=== PATIENT | male | born 1965 | race Caucasian/White ===

== ENCOUNTER 2020-12-26 09:33 | Outpatient (CLI) | payer OTHER, SELFPAY ==
--- NOTE | ~2020-12-26 | CT_ITS ---
EXAMINATION:CT lung screening DATE: 12/26/2020 09:53 INDICATION: Nicotine dependence, cigarettes, uncomplicated. Current smoker with 40 pack year history. TECHNIQUE: Computed tomography (CT) of the chest was performed without intravenous contrast. Automate d exposure control and iterative reconstruction technique were employed. The dose-length product (DLP ) was 102.13 mGy-cm. COMPARISON: CT abdomen 08/18/2019 FINDINGS: There is mild emphysema. There is mild atelectasis bilaterally. There is a 2 mm nodule in r ight upper lobe. There is a 2 mm nodule at right major fissure. There is a 2 mm nodule in left upper lobe. There is a 4 mm groundglass opacity in left upper lobe. No pleural effusion. The heart size is normal. There are coronary artery calcifications. No pericardial effusion. There is a 5 mm cyst in th e liver. There is a 10 mm mass in left adrenal gland measuring low-attenuation, consistent with an ad enoma. There is mild lumbar spondylosis. There is mild chronic anterior wedging of multiple lower tho racic vertebral bodies. IMPRESSION: 1. Lung-RADS category 2: Benign appearance or behavior. Continue annual screening with noncontrast lo w-dose chest CT in 12 months. Reviewed, dictated and finalized at location B. IMPRESSION: 1. Lung-RADS category 2: Benign appearance or behavior. Continue annual screeni ng with noncontrast low-dose chest CT in 12 months.
== END 2020-12-26 09:34 | disposition home or self-care (01) ==
PROVIDERS: PCP Family Medicine; Visit Provider Family Medicine
DX: Z12.2 Encounter for screening for malignant neoplasm of respiratory organs (principal); Z87.891 Personal history of nicotine dependence
CPT/HCPCS: 71271

== ENCOUNTER 2021-12-29 14:19 | Outpatient (CLI) | payer BC, SELFPAY ==
--- NOTE | ~2021-12-29 | CT_ITS ---
EXAMINATION: CT lung screening DATE: 12/29/2021 14:33 INDICATION: Personal history of tobacco dependence TECHNIQUE: Computed tomography (CT) of the chest was performed without intravenous contrast. The dose -length product was 105.15 mGy-cm. Automated exposure control and iterative reconstruction technique were employed. COMPARISON: CT dated 12/26/2020 FINDINGS: There are borderline size mediastinal lymph nodes, likely reactive. Heart size normal. No s ignificant pleural or pericardial effusion. There is a small stable low-density lesion of the left ad renal gland measuring 1.5 x 1.1 cm, likely benign adenoma. Mild emphysema. No endobronchial lesions. Stable scattered bilateral pulmonary nodules measuring 3 mm or less. No endobronchial lesions. No pne umothorax. No acute osseous abnormality. There are surgical changes of the lower cervical spine. No f ocal lytic or blastic lesions. IMPRESSION: 1. Lung-RADS category 2: Benign appearance or behavior. Continue annual screening with noncontrast lo w-dose chest CT in 12 months. Reviewed, dictated and finalized at location A. IMPRESSION: 1. Lung-RADS category 2: Benign appearance or behavior. Continue annual screeni ng with noncontrast low-dose chest CT in 12 months.
== END 2021-12-29 14:20 | disposition home or self-care (01) ==
PROVIDERS: PCP Family Medicine; Visit Provider Family Medicine
DX: Z12.2 Encounter for screening for malignant neoplasm of respiratory organs (principal); Z87.891 Personal history of nicotine dependence
CPT/HCPCS: 71271

== ENCOUNTER 2022-08-20 13:53 | Outpatient (CLI) | payer BC, SELFPAY ==
--- NOTE | ~2022-08-20 | XR_ITS ---
XR abdomen/kub 1V 08/20/2022 14:28 INDICATION: Finalized abdominal pain TECHNIQUE: KUB COMPARISON: CT dated 08/18/2019 FINDINGS: Bowel gas pattern is normal. There is no evidence of free air, mass, organomegaly, ascites or obstruction. No abnormal calculi are seen. The bones appear intact. IMPRESSION: 1: No acute abdominal abnormality identified. Reviewed, dictated and finalized at location A. [employer]
[2022-08-20 15:33] LABS: Add Urine Microscopic? NO; Appearance Urine Clear (Clear); Bilirubin Urine Negative (Negative); Blood Urine Negative (Negative); Color Urine Yellow (Yellow); Glucose Urine UA Negative (Negative); Ketones Urine Negative (Negative); Leukocyte Esterase Ur Negative LEU/UL (Negative); Nitrate Urine Negative (Negative); Protein Urine Negative (Negative); Urobilinogen Urine 0.2 mg/dL (<2.0)
== END 2022-08-20 13:54 | disposition home or self-care (01) ==
PROVIDERS: PCP Family Medicine; Visit Provider Physician Assistant
DX: M54.9 Dorsalgia, unspecified (principal); N41.9 Inflammatory disease of prostate, unspecified; N39.0 Urinary tract infection, site not specified; R39.198 Other difficulties with micturition
CPT/HCPCS: 74018; 81003; 87491; 87591

== ENCOUNTER → 2023-02-05 10:43 | Outpatient (CLI) | payer BC, SELFPAY ==
--- NOTE | ~2023-02-05 | CT_ITS ---
EXAMINATION: CT lung screening DATE: 02/05/2023 10:58 INDICATION: Personal history of nicotine dependence TECHNIQUE: Computed tomography (CT) of the chest was performed without intravenous contrast. The dose -length product was 103.37 mGy-cm. Automated exposure control and iterative reconstruction technique were employed. COMPARISON: CT dated 12/29/2021 FINDINGS: There is mild right paratracheal lymphadenopathy, likely reactive. Heart size normal. No si gnificant pleural or pericardial effusion. Stable low-density 1.5 cm left adrenal nodule, likely idalmis gn adenoma. There are calcified granulomas of the spleen. There is emphysema. No endobronchial lesion s. No pneumothorax. There is right middle lobe atelectasis. There are a few small pulmonary nodules m easuring 2 mm or less which are stable. Mild-moderate lower thoracic spondylosis. IMPRESSION: 1. Lung-RADS category 2: Benign appearance or behavior. Continue annual screening with noncontrast lo w-dose chest CT in 12 months. Reviewed, dictated and finalized at location [] IMPRESSION: 1. Lung-RADS category 2: Benign appearance or behavior. Continue annual screeni ng with noncontrast low-dose chest CT in 12 months.
== END ==
PROVIDERS: PCP Family Medicine; Visit Provider Family Medicine
DX: Z12.2 Encounter for screening for malignant neoplasm of respiratory organs (principal); Z87.891 Personal history of nicotine dependence
CPT/HCPCS: 71271

== ENCOUNTER 2024-02-08 16:10 | Outpatient (CLI) | payer BC, SELFPAY ==
--- NOTE | ~2024-02-08 | CT_ITS ---
CT Scan of the Chest without Contrast: Clinical Indication: Lung cancer screening, nicotine dependence Technique: Contiguous sections were acquired throughout the chest without intravenous contrast. Dose reduction technique was used on this scan by utilizing automated exposure control and iterative recon struction technique. The dose-length product (DLP) was 111.72 mGy-cm. COMPARISON: 02/05/2023 Findings: There is no evidence of any significant mediastinal, hilar or axillary lymphadenopathy. The mediastin al soft tissues appear normal. There is no evidence of pleural or pericardial effusion. There is linear bibasilar scarring or atelectasis. No pulmonary nodule evident. Images through the upper abdomen reveal no abnormalities. Impression: Lung RADS 2: Benign appearance. 12 month follow-up screening CT advised. Reviewed, dictated and finalized at [facility]. Impression: Lung RADS 2: Benign appearance. 12 month follow-up screening CT advised.
== END 2024-02-08 16:11 | disposition home or self-care (01) ==
LOC: ANHIMG 16:13
PROVIDERS: PCP Family Medicine; Visit Provider Family Medicine
DX: Z12.2 Encounter for screening for malignant neoplasm of respiratory organs (principal); Z87.891 Personal history of nicotine dependence
CPT/HCPCS: 71271

== ENCOUNTER 2024-07-27 01:45 | Day surgery (SDC) | payer BC, SELFPAY ==
[2024-07-12 14:57] VITALS: BMI 27.2
[2024-07-27 11:50] VITALS: BP 133/100; PULSE 88; RESP 18; TEMP 35.7; O2SAT 100; BMI 27.2
[2024-07-27] MEDS: LACTATED RINGERS 1,000 ML 150 ML IV CONT (11:58)
--- NOTE | 2024-07-27 12:02 | P.PNAN_ITS ---
Anes - Initial Pre Proc Eval Procedure: Operation Date: 07/27/24 13:00 Proposed Procedures p Screening Colonoscopy - Gabino Fernando MD Date/Time: 07/27/24 12:02 Surgeon: Gabino Fernando MD Pre Op Diagnosis: Hx Colon Polyps Patient Data Age: 58 Gender: M Height: 1.7 m Weight: 78.9 kg Last Vital Signs Temp 96.3 F L 07/27/24 11:50 Pulse 88 07/27/24 11:50 Resp 18 07/27/24 11:50 BP 133/100 H 07/27/24 11:50 Pulse Ox 100 07/27/24 11:50 O2 Del Method Room Air 07/27/24 11:50 Allergies Allergy/AdvReac Type Severity Reaction Status Date / Time No Known Allergies Allergy Verified 07/27/24 11:49 Home Medications ?Medication ?Instructions ?Recorded ?Confirmed ?Type tamsulosin 0.4 mg capsule (Flomax) 0.4 mg PO DAILY 12/28/22 07/27/24 History fluticasone 250 mcg-salmeterol 50 1 inh inhalation EVERY OTHER DAY 07/12/24 07/27/24 History mcg/dose blistr powdr for inhalation (Wixela Inhub) hydrocodone 10 mg-acetaminophen 1 tablet PO PRN PRN Pain (Scale 07/12/2406/17 History 325 mg tablet Score 7-10) Patient hx anesthesia problems: none Family hx anesthesia problems: none Results Review: All pre-operative results and documents have been reviewed as part of the pre- operative evaluation. [facility] Past Medical History Medical History COPD (chronic obstructive pulmonary disease) Mixed hyperlipidemia Polyp of colon Family History Family History Father Family history of lung cancer Social History Social History Smoking packs per day: 1 Smoking cigarettes per day: 20.0 Years smoked: 40 Smoking pack-years: 40.00 Smoking status: Former smoker Tobacco type: e-cigarettes/vaping Second hand tobacco smoke exposure: No Alcohol intake: current Drinks per week: 6 Alcohol use details: Beer Substance use: never Substance use type: does not use Living arrangements: with family Occupation/Education: occupation Gender identity (if verbalized by the patient): Male Sexual Orientation (if Verbalized by the Patient): Straight or Heterosexual Spiritual care concerns: No Anes - Eval Final PreProcedure Day of Procedure 07/27/24 12:02 Patient weight: overweight Heart: regular rate and rhythm Lungs: clear to auscultation Airway: Mallampati scale class II and special considerations (Upper perm bridge. ) Neurological: alert and oriented Last oral intake: >/= 8 hours ASA classification: II Emergent: no Anesthetic plan: proceed Anesthesia type and monitoring: general GIVS and standard monitoring Results Review: All pre-operative results and documents have been reviewed as part of the pre- operative evaluation. Ex smoker, quit 2021, currently vapes daily and vaped earlier today. Informed Consent: The patient's anesthetic plan and its attendant risks and benefits were discussed with the patient/family/POA. Questions were solicited and answers provided to the satisfaction of the patient/family/POA.
--- NOTE | 2024-07-27 12:17 | PM.HPGS ---
History of Present Illness History of Present Illness Consent: Risks, benefits, and alternatives have been discussed and questions answered. Patient agrees to proceed with procedure. Chief complaint: Hx Colon Polyps Narrative: Jude Adorno is a 58 year old male with colon polyp in 2018 Review of Systems Review of Systems: All systems reviewed & are unremarkable except as noted in HPI and below PMFSH Past Medical History Medical History COPD (chronic obstructive pulmonary disease) Mixed hyperlipidemia Polyp of colon Family History Family History Father Family history of lung cancer Social History Social History Smoking packs per day: 1 Smoking cigarettes per day: 20.0 Years smoked: 40 Smoking pack-years: 40.00 Smoking status: Former smoker Tobacco type: e-cigarettes/vaping Second hand tobacco smoke exposure: No Alcohol intake: current Drinks per week: 6 Alcohol use details: Beer Substance use: never Substance use type: does not use Living arrangements: with family Occupation/Education: occupation Gender identity (if verbalized by the patient): Male Sexual Orientation (if Verbalized by the Patient): Straight or Heterosexual Spiritual care concerns: No Meds Home Medications and Allergies Home Medications ?Medication ?Instructions ?Recorded ?Confirmed ?Type tamsulosin 0.4 mg capsule (Flomax) 0.4 mg PO DAILY 12/28/22 07/27/24 History fluticasone 250 mcg-salmeterol 50 1 inh inhalation EVERY OTHER DAY 07/12/24 07/27/24 History mcg/dose blistr powdr for inhalation (Wixela Inhub) hydrocodone 10 mg-acetaminophen 1 tablet PO PRN PRN Pain (Scale 07/12/24 07/12/24 History 325 mg tablet Score 7-10) Allergies Allergy/AdvReac Type Severity Reaction Status Date / Time No Known Allergies Allergy Verified 07/27/24 11:49 Vital Signs Vital Signs - 24 hr 07/27/24 11:50 Temperature 96.3 F L Pulse Rate 88 Respiratory Rate 18 Blood Pressure 133/100 H Pulse Oximetry 100 Oxygen Delivery Room Air Exam Const: General: comfortable and no acute distress HENMT: Face/Nose/Sinus: Normal nares present Eyes: General: appearance normal, both eyes and all related structures Neck: Neck: no JVD Resp: Auscultation: clear to auscultation bilaterally Cardio: Rate: regular rate Rhythm: regular rhythm GI: Inspection: non-distended GI Palp: Yes Soft to palpation Skin: General skin exam: normal color Neuro: General: gait normal Speech: normal speech Extrem: General: normal to inspection Psych: Mental Status: mental status grossly normal Assessment and Plan Assessment and plan (1) Polyp of colon: Code(s): K63.5 - Polyp of colon Status: Acute Assessment and Plan: colonoscopy
[2024-07-27 12:38] VITALS: BP 108/86; PULSE 81; RESP 20; O2SAT 97
[2024-07-27 12:48] VITALS: BP 126/94; PULSE 76; RESP 20; O2SAT 100
[2024-07-27 12:58] VITALS: BP 127/92; PULSE 70; RESP 20; O2SAT 100
== END 2024-07-27 13:05 | disposition home or self-care (01) ==
PROVIDERS: PCP Family Medicine; Visit Provider Internal Medicine Gastroenterology
PROC: 0DJD8ZZ Inspection of Lower Intestinal Tract, Via Natural or Artificial Opening Endoscopic (ICD-10-PCS; CPT 45378; principal; 2024-07-27 13:00)
DX: Z12.11 Encounter for screening for malignant neoplasm of colon (principal); D12.5 Benign neoplasm of sigmoid colon; K64.8 Other hemorrhoids; Z86.0100 Personal history of colon polyps, unspecified; J44.9 Chronic obstructive pulmonary disease, unspecified; E78.2 Mixed hyperlipidemia; Z87.891 Personal history of nicotine dependence
CPT/HCPCS: 45385; 88305; J2003; J2704; J7120

== ENCOUNTER 2025-02-09 09:30 | Outpatient (CLI) | payer BC, SELFPAY ==
--- NOTE | ~2025-02-09 | CT_ITS ---
CT Scan of the Chest without Contrast: Clinical Indication: Lung cancer screening, nicotine dependence Technique: Contiguous sections were acquired throughout the chest without intravenous contrast. Dose reduction technique was used on this scan by utilizing automated exposure control and iterative recon struction technique. The dose-length product (DLP) was 85.14 mGy-cm. COMPARISON: 02/08/2024 Findings: There is no evidence of any significant mediastinal, hilar or axillary lymphadenopathy. The mediastin al soft tissues appear normal. There is no evidence of pleural or pericardial effusion. The lungs are clear. No pulmonary nodules or infiltrates are noted. Images through the upper abdomen reveal no abnormalities. Impression: Lung RADS 1: Negative. 12 month follow-up screening CT advised. Reviewed, dictated and finalized at location . Impression: Lung RADS 1: Negative. 12 month follow-up screening CT advised.
== END 2025-02-09 09:31 | disposition home or self-care (01) ==
PROVIDERS: PCP Family Medicine; Visit Provider Family Medicine
DX: Z12.2 Encounter for screening for malignant neoplasm of respiratory organs (principal); Z87.891 Personal history of nicotine dependence
CPT/HCPCS: 71271